=== PATIENT | female | born 1975 | race Caucasian/White ===

== ENCOUNTER 2016-09-16 10:35 | Emergency (ER) | payer SELFPAY ==
[~2016-09-16] VITALS: Ht 162.6 cm; Wt 100.0 kg
[~2016-09-16 10:35] MED LIST: BACT800T5 PO; CEPH500T PO; LOSA50TA PO
[2016-09-16 10:37] VITALS: BP 179/99; PULSE 84; RESP 16; TEMP 98.3; O2SAT 99
[2016-09-16] MEDS ORDERED: BACT800T5 PO (11:05)
[2016-09-16] MEDS ORDERED: IBUP800T23 PO (11:05)
--- NOTE | 2016-09-16 11:06 | PD ---
HPI Chief Complaint: Skin Problem Time Seen by Provider: 11:03 Travel History International Travel<30 days: No Contact w/Intl Traveler<30days: No Traveled to known affect area: No History of Present Illness HPI 41-year-old female presents to the emergency department complaining of a sore to her nose times one and half weeks and to her left lower back for the last couple days. Reports feeling nauseated yesterday without vomiting. Denies fever. Has history of similar sores that she's been seen here in the past for. Denies allergies. Has no other medical complaints. No appointment factors or associated signs and symptoms. PFSH Past Medical History Diminished Hearing: No Hypertension: Yes Tetanus Vaccination: < 5 Years Influenza Vaccination: No ?: Not LMP: 09/01/16 : 2 Para: 2 Past Surgical History Surgical History: No Previous Surgery Social History Alcohol Use: No Tobacco Use: No Substance Use: No Allergies-Medications (Allergen,Severity, Reaction): Coded Allergies: *MDRO Multi-Drug Resistant Organism (Verified Adverse Reaction, Unknown, MRSA, 09/16/16) MRSA (chest wound) - 03/19/16 Reported Meds & Prescriptions Reported Meds & Active Scripts Active Ibuprofen 800 Mg Tab 800 Mg PO Q6HR PRN Bactrim DS (Sulfamethoxazole-Trimethoprim) 800-160 Mg Tab 1 Tab PO BID 10 Days Review of Systems Except as stated in HPI: all other systems reviewed are Neg Physical Exam Narrative GENERAL: Well-nourished, well-developed female patient, in no acute distress; afebrile, nontoxic-appearing SKIN: There is an indurated area to the tip of the nose which measures about 0.5 cm in diameter. It is nonfluctuant and there is pointing, but no drainage. There is a zone of inflammation around it but no lymphangitis. There is an indurated area to the left lower back that measures approximately 1 cm in diameter; it is fluctuant and without pointing or drainage; there is a zone of inflammation around it but no lymphangitis. HEAD: Atraumatic. Normocephalic. EYES: Pupils equal and round. No scleral icterus. No injection or drainage. ENT: Mucosa pink and moist. Airway patent. NECK: Trachea midline. CARDIOVASCULAR: Regular rate. RESPIRATORY: No accessory muscle use. GASTROINTESTINAL: Obese. MUSCULOSKELETAL: No obvious deformities. No clubbing. No cyanosis. No edema. NEUROLOGICAL: Awake and alert. Oriented 3. No obvious cranial nerve deficits. Motor grossly within normal limits. Normal speech. PSYCHIATRIC: Appropriate mood and affect; insight and judgment normal. Data Data Last Documented VS Vital Signs Date Time Temp Pulse Resp B/P Pulse Ox O2 Delivery O2 Flow Rate FiO2 09/16/16 10:37 98.3 84 16 179/99 99 Orders Wound Culture And Gram Stain (09/16/16 11:06) Lidocaine 1% Inj (50 Ml) (Xylocaine 1% I (09/16/16 11:15) [facility] Medical Decision Making Medical Screen Exam Complete: Yes Emergency Medical Condition: Yes Medical Record Reviewed: Yes Differential Diagnosis Abscess, cellulitis, folliculitis Narrative Course 41-year-old female with an abscess to the tip of her nose and to the left lower back. I reviewed the patient's chart and she has history of MRSA and susceptible to Bactrim. Patient is afebrile and nontoxic-appearing. She denies fever, vomiting. See my procedure note for incision and drainage. Wound culture pending. Bactrim and ibuprofen prescribed for home. Patient verbalizes understanding and agreement with treatment plan. Patient is medically cleared and stable for discharge. Discussed reasons to return to the emergency department. Instructed patient to follow up with primary care provider. Patient agrees with treatment plan. The patients vital signs are stable and the patient is stable for outpatient follow-up and treatment. Patient discharged home, stable and in no acute distress. Procedures Procedure Narrative INCISION AND DRAINAGE OF ABSCESS: The area was prepped and was sterilely draped. 1% lidocaine was used to anesthetize the area. The area was properly anesthetized. A number 11 scalpel was used to make a less than 0.5-cm incision across the area of the abscess. Cultures were obtained. The abscess was drained an irrigated with normal saline. Sterile dressing applied. Diagnosis Primary Impression: Trunk abscess Additional Impression: Abscess of external nose Referrals: Primary Care Physician Patient Instructions: Abscess (ED), Abscess Follow-up (ED), Abscess Incision and Drainage (ED), General Instructions Departure Forms: Tests/Procedures, Work Release Enter return to work date: Sep 18, 2016 Additional Instructions: Complete full course of antibiotics Warm compresses to the affected area Keep area clean and dry Ibuprofen or Tylenol as directed and as needed for pain and inflammation Follow-up with primary care provider Return to emergency department immediately with worsening of symptoms Med/Other Pt SpecificInfo: Prescription(s) given Scripts Ibuprofen 800 Mg [id number] Mg PO Q6HR PRN (PAIN) #30 TAB Ref 0 Prov:Patricia Jett 09/16/16 Sulfamethoxazole-Trimethoprim (Bactrim DS)800-160 Mg Tab1 Tab PO BID 10 Days Ref 0 Prov:Patricia Jett 09/16/16 Disposition: 01 DISCHARGE HOME Condition: Stable Patricia Jett Sep 16, 2016 11:06
[2016-09-16] MEDS ORDERED: LIDOCAINE HCL 1% 50 ML VIAL INFIL ONE (11:15)
[2016-09-16 11:20] VITALS: BP 127/83; TEMP 98.3
== END 2016-09-16 11:45 | disposition home or self-care (01) ==
LOC: NEPD 10:35
DX: L02.212 Cutaneous abscess of back [any part, except buttock and flank] (principal); J34.0 Abscess, furuncle and carbuncle of nose; B95.62 Methicillin resistant Staphylococcus aureus infection as the cause of diseases classified elsewhere; R11.0 Nausea; I10 Essential (primary) hypertension; Z86.14 Personal history of Methicillin resistant Staphylococcus aureus infection
CPT/HCPCS: 10060; 86403; 87070; 87186